=== PATIENT | female | born 1965 | race Caucasian/White ===

== ENCOUNTER 2024-10-14 06:36 | Day surgery (SDC) | payer BC, SELFPAY ==
[2024-10-12 15:01] VITALS: BMI 31.3
[2024-10-14 07:32] VITALS: BP 144/82; PULSE 68; RESP 18; TEMP 36.3; O2SAT 99
--- NOTE | 2024-10-14 07:35 | EXP.ANES.CKL ---
[facility] Disclaimer: The information contained in this section may have been updated after the patient was seen, as this information can be updated by other users. Medical History Sinus headache Rheumatoid arthritis Appendicitis Surgical History History of right shoulder replacement History of photorefractive keratectomy (PRK) H/O bilateral breast reduction surgery Family History Other Colon cancer Family history of COPD (chronic obstructive pulmonary disease) Social History Smoking Status: Never smoker alcohol intake: former substance use type: denies use current occupational status: retired Travel in the last 8 weeks: None [facility] Anesthesia Checklist Patient Identification Patient Identification: Arm Band Structural Data Admitted From: Home Planned Operative Procedure/s: EGD/Colonoscopy Consent for Planned Operative Procedure(s) Verified: Yes Verified Documents: Surgical Consent and History and Physical NPO Status Verified Time NPO: 04:00 (finished prep) Additional verifications Anesthesia Reactions: No Airway Assessment Mallampati Score:: Class II C-Spine Mobility Assessed: Yes TMJ Mobility Assessed: Yes Dentition: Good Dentition Neurological Assessment Level of Consciousness: Awake, Alert and Appropriate Anesthesia Plan Anesthesia Risk discussed: Yes Anesthesia Plan: Verified ASA Class: II Anesthesia Type: MAC
--- NOTE | 2024-10-14 07:40 | P.HP_ITS ---
History of Present Illness *Admission Date: 10/14/24 *History of present illness: Mrs. Tolbert is a 58-year-old female who is here for bouts of gas, bloating, abdominal pain and rectal bleeding. The examination is deemed medically necessary for diagnostic upper endoscopy and colonoscopy. The patient has been seen, interviewed and examined prior to the procedure by both myself and the anesthesia provider. [facility] Disclaimer: The information contained in this section may have been updated after the patient was seen, as this information can be updated by other users. Medical History (Updated 10/14/24 @ 07:49 by Tom Og II, MD) Sinus headache Rheumatoid arthritis Appendicitis Surgical History History of right shoulder replacement History of photorefractive keratectomy (PRK) H/O bilateral breast reduction surgery Family History Other Colon cancer Family history of COPD (chronic obstructive pulmonary disease) Social History (Updated 10/14/24 @ 07:36 by Judah Paredes CRNA) Smoking Status: Never smoker alcohol intake: former substance use type: denies use current occupational status: retired Travel in the last 8 weeks: None Have you lived/traveled outside [place] in past 30 days?: No Contact w/someone who lives/traveled outside US past 30 days?: No Exposure to someone with infectious disease in past 14 days?: No Do you have a fever (greater than 100.4 F or 38 C)?: No Have you tested positive for COVID-19: No Exposed to someone with COVID-19 in past 14 days?: No Do you have a sore throat?: No Do you have a cough?: No Do you have any weakness?: No Are you experiencing any nausea/vomitting?: No Do you have any diarrhea?: No Are you experiencing any unusual bleeding?: No Do you have any muscle aches/pain?: No Do you have any abdominal pain?: No Are you experiencing loss of taste or smell?: No Review of Systems Review of Systems Review of systems (narrative): Negative *Cardiovascular Comments: Negative *Gastrointestinal Comments: Negative *Genitourinary Comments: Negative *Musculoskeletal Comments: Negative *Neurologic Comments: Negative Meds Home Medications and Allergies Home Medications ?Medication ?Instructions ?Recorded ?Confirmed ?Type sodium,potassium,mag sulfates 17.5 See Rx Instructions PO .COMPLEX 09/30/24 10/12/24 Rx gram-3.13 gram-1.6 gram oral soln #354 mL (Suprep Bowel Prep Kit) naproxen sodium 220 mg capsule 220 mg PO DAILY 10/12/24 10/12/24 History (Aleve) valacyclovir 500 mg tablet 500 mg PO DAILY PRN HERPES 10/12/24 10/12/24 History (Valtrex) New Prescriptions to Start Prescriptions: Allergies Allergy/AdvReac Type Severity Reaction Status Date / Time PLASTIC Allergy Rash Uncoded 10/12/24 14:47 Exam Data for Last 24 hours Vital signs and Labs for Last 24 Hours: Temp Pulse Resp BP Pulse Ox O2 Del Method 97.4 F L 68 18 144/82 H 99 Room Air 10/14/24 07:32 10/14/24 07:32 10/14/24 07:32 10/14/24 07:32 10/14/24 07:32 10/14/24 07:32 I & O for Last 24 hours: Intake & Output 10/11/24 10/12/24 10/13/24 10/14/24 23:59 23:59 23:59 23:59 Weight 200 lb *Routine HEENT Exam Head: Present normocephalic Eye: Present EOMI and PERRL ENT: Present mucous membranes moist *Routine Neck Exam Neck: Present supple *Routine Respiratory Exam Respiratory: Present CTA bilaterally *Routine Cardiovascular Exam Cardiovascular: Present RRR *Routine Abdominal Exam Abdominal: Present soft and normoactive bowel sounds; Absent tenderness *Routine Rectal Exam Rectal:: deferred *Routine Genitalia Exam Genitalia:: deferred *Routine Extremities Exam Extremities: Absent cyanosis, clubbing or edema *Routine Skin Exam Skin: Present warm; Absent rash *Routine Neurological Exam Neurological: Present alert and oriented X3 Assessment and Plan *Assessment and plan (1) Bright red rectal bleeding: Status: Acute Category: Medical Code(s): K62.5 - Hemorrhage of anus and rectum (2) Change in bowel habits: Status: Acute Category: Medical Code(s): R19.4 - Change in bowel habit (3) Gassiness: Status: Acute Category: Medical Code(s): R14.0 - Abdominal distension (gaseous) (4) Bloating: Status: Acute Category: Medical Code(s): R14.0 - Abdominal distension (gaseous) (5) Generalized abdominal pain: Status: Acute Category: Medical Code(s): R10.84 - Generalized abdominal pain Plan A/P: 1. Bright red rectal bleeding with change in bowel habits, gassiness, bloating and generalized abdominal pain is the preprocedural diagnosis. The patient will be anesthetized/sedated using MAC sedation. The patient has been seen and examined. Cardiac and lung assessment prior to the examination is stable. Proceed with planned diagnostic EGD and colonoscopy.
[2024-10-14 07:45] VITALS: O2SAT 99
--- NOTE | 2024-10-14 07:57 | HMH.PROCNOTE ---
[facility] Procedure Note Date: 10/14/24 Time: 07:57 Procedure Note:: Upper Endoscopy Procedure Report: Esophagogastroduodenoscopy with cold biopsies Endoscopost: Tom Og II, MD Referring Physician: Maria L Clarke MD [id number] [facility] [id number], [place] [address] Date of Procedure: October 14, 2024 Equipment: Olympus GIF 190 standard upper endoscope Sedation: MAC sedation Indications: Mrs. Tolbert is a 58-year-old female who has had 2 recent bouts of generalized abdominal swelling, bloating, gassiness and abdominal pain and discomfort followed by bowel movements that alternate between lumpy and then diarrhea. Her second bout in July 2024 was accompanied by a large amount of bright red blood. She does have some long-term constipation with intermittent alternating diarrhea. The patient reports little heartburn or dysphagia. She reports fluctuating weight. Her maternal aunt had colon cancer in her 60s and her mother had bladder cancer. Diagnostic EGD and colonoscopy is performed for further evaluation. Procedure: Prior to the procedure, a history and physical exam was performed, and patient's medications and allergies were reviewed. The risks, benefits and alternatives of the sedation and procedure were discussed with the patient. All questions were answered and informed consent was obtained. The patient was brought to the procedure room. Patient identification and proposed procedure were verified by the physician and the nurse. The patient was placed in a left lateral decubitus position and the scope was passed under direct vision. Throughout the procedure, the patient's blood pressure, pulse, and oxygen saturations were monitored continuously. The upper GI endoscopy was accomplished without difficulty. The patient tolerated the procedure well. Findings: The scope was passed directly into the upper esophagus and advanced to the third portion of the duodenum. The post bulbar duodenum, ampulla and duodenal bulb were normal with normal mucosa and conniventes. Cold biopsies were taken from the first portion of duodenum and bulb to rule out celiac disease. The scope was withdrawn through a normal duodenal bulb and pylorus into the stomach. There was mild linear reactive gastropathy of the antrum. The body and fundus of the stomach were grossly normal. Upon retroflexion there was a very small sliding 1 to 2 cm hiatal hernia. Biopsies were taken from the antrum. The scope was then withdrawn into the esophagus. There was no evidence of reflux esophagitis or Bowie's. Biopsies were taken from the GE junction. There was mild tertiary contractions and mild esophageal dysmotility. The remainder of the esophageal mucosa was normal. Impression: 1. Mild linear reactive gastropathy of antrum 2. Very small sliding hiatal hernia (1 to 2 cm) Plan: I will follow-up the biopsies and proceed with diagnostic colonoscopy. I do feel that her symptoms are characteristic of colonic bacterial overgrowth syndrome. We will discuss treatment options.
--- NOTE | 2024-10-14 08:17 | P.PCN_ITS ---
[facility] Procedure Note Date: 10/14/24 Time: 08:17 Procedure Note:: Colonoscopy Procedure Report: Colonoscopy with cold biopsies and monopolar ablation/coagulation of internal hemorrhoids Endoscopist: Tom Og II, MD Referring physician: Luba Clarke MD, [facility], [place] [address] Date of Procedure: October 14, 2024 Equipment: Olympus 190 variable stiffness pediatric colonoscope Sedation: MAC sedation Indication: Mrs. Tolbert is a 58-year-old female who has had 2 recent bouts of generalized abdominal swelling, bloating, gassiness and abdominal pain and discomfort followed by bowel movements that alternate between lumpy and then diarrhea. Her second bout in July 2024 was accompanied by a large amount of bright red blood. She does have some long-term constipation with intermittent alternating diarrhea. The patient reports little heartburn or dysphagia. She reports fluctuating weight. Her maternal aunt had colon cancer in her 60s and her mother had bladder cancer. Diagnostic EGD and colonoscopy is performed for further evaluation. The patient did have a normal colonoscopy 3 years ago with tx in [place]. Procedure: Prior to the procedure, a history and physical exam was performed, and patient's medications and allergies were reviewed. The risks, benefits and alternatives of the sedation and procedure were discussed with the patient. All questions were answered and informed consent was obtained. The patient was brought to the procedure room. Patient identification and proposed procedure were verified by the physician and the nurse. The patient was placed in a left lateral decubitus position and the scope was passed under direct vision. Throughout the procedure, the patient's blood pressure, pulse, and oxygen saturations were monitored continuously. The colonoscopy was accomplished without difficulty. The patient tolerated the procedure well. Findings: On digital rectal examination there was normal rectal tone. There were no external hemorrhoids. The colonoscope was introduced through the anal canal to the rectum and advanced to the cecum. The ileocecal valve and appendiceal orifice were identified. The scope was advanced a short distance into the ileum which appeared grossly normal. The scope was then withdrawn into the colon. The cecum, ascending, transverse, descending, sigmoid and rectum were grossly normal. Cold biopsies were taken from the right colon to rule out microscopic colitis. There were no mucosal abnormalities identified. Upon retroflexion within the rectum there were grade 2 internal hemorrhoids. The hemorrhoids were ablated using monopolar ablation/coagulation to destruction. The preparation was excellent throughout with Penfield Preparation Score of 9. The cecal time was 11 minutes. Impression: 1. Normal colonoscopy with intubation of the terminal ileum 2. Grade 2 internal hemorrhoids status post monopolar ablation/coagulation Plan: I do suspect colonic bacterial overgrowth syndrome. Bacterial overgrowth syndrome is a term that describes symptoms or clinical manifestations (i.e. bloating and bowel irregularity) that occur when the normally low number of bacteria in the colon increase but also can sometimes inhabit the small intestine (SIBO-small intestinal bacterial overgrowth). The small bowel and upper digestive tract are thought to be a sterile environment. However, low concentrations of various bacteria live within or are attached to the luminal surface of the small intestine. These are present from the time of and throughout adulthood, living in symbiosis with the human body. They are vital for normal digestion and immunity and intestinal development. There are various occurrences that can disrupt our bodies mechanisms that keep the number of these bacteria low. Certainly peristalsis and gastric acidity help to keep these bacterial populations lower. The colonic bacterial population usually increases when there is increased fecal burden (reduced colonic clearance/incomplete defecation). It can also occur when foods are less digestable/absorbable and provide substrate for colonic phillip (i.e. FODMAP's) which results in fermentation and increased colonic phillip. It can also occur with digestive enzyme deficiencies. When foods/carbohydrates are not enzymatically digested, the sugars (often disaccharides) too become substrate for colonic floral overgrowth.
[2024-10-14 08:20] VITALS: BP 115/67; PULSE 80; RESP 17; TEMP 36.2; O2SAT 94
[2024-10-14 08:30] VITALS: BP 118/71; PULSE 65; RESP 17; O2SAT 99
[2024-10-14 08:40] VITALS: BP 124/75; PULSE 69; RESP 17; O2SAT 98
[2024-10-14 08:50] VITALS: BP 131/79; PULSE 66; RESP 17; O2SAT 99
== END 2024-10-14 09:16 | disposition home or self-care (01) ==
PROVIDERS: PCP Family Medicine Addiction Medicine; Visit Provider Internal Medicine Gastroenterology
PROC: 0DJ08ZZ Inspection of Upper Intestinal Tract, Via Natural or Artificial Opening Endoscopic (ICD-10-PCS; CPT 45378; principal; 2024-10-14 08:00)
DX: K31.9 Disease of stomach and duodenum, unspecified (principal); K44.9 Diaphragmatic hernia without obstruction or gangrene; K64.1 Second degree hemorrhoids; K62.5 Hemorrhage of anus and rectum; R19.4 Change in bowel habit; R14.0 Abdominal distension (gaseous); R10.84 Generalized abdominal pain; R12 Heartburn; R13.10 Dysphagia, unspecified
CPT/HCPCS: 43239; 45388